=== PATIENT | male | born 1990 | race Caucasian/White ===

== ENCOUNTER 2017-10-06 09:56 | Emergency (ER) | payer OTHER ==
[~2017-10-06] VITALS: Ht 185.4 cm; Wt 92.9 kg
[2017-10-06] MEDS ORDERED: KETOROLAC 30 MG/ML VIAL (J1885) IV ONE (10:45)
[2017-10-06] MEDS ORDERED: MORPHINE 2 MG/ML 1ML SYRINGE IV ONE (11:30)
[2017-10-06] MEDS ORDERED: methylPREDNISolone INJ 125 MG/2 ML VIAL (J2930) IV ONE (11:30)
[2017-10-06 11:45] VITALS: BP 138/77
[2017-10-06] MEDS ORDERED: VALI5TAB PO (11:58)
[2017-10-06] MEDS ORDERED: PRED20TA PO (11:58)
== END 2017-10-06 12:05 | disposition home or self-care (01) ==
LOC: EDSEX 09:56 → EDBD 09:56 → M ED 09:56
DX: M62.830 Muscle spasm of back (principal); G89.29 Other chronic pain; M54.5 Low back pain; F17.210 Nicotine dependence, cigarettes, uncomplicated
CPT/HCPCS: 96374; 96375; 99284; J1885; J2930; J3360